=== PATIENT | male | born 1975 | race Caucasian/White ===

== ENCOUNTER 2016-12-17 14:36 | Emergency (ER) | payer MEDICARE, OTHER | END 2016-12-17 17:20 | disposition home or self-care (01) | LOC: ER 14:36 | DX: E86.0 Dehydration (principal); F31.9 Bipolar disorder, unspecified; F17.210 Nicotine dependence, cigarettes, uncomplicated; Z79.899 Other long term (current) drug therapy; Z88.0 Allergy status to penicillin; Z91.030 Bee allergy status | CPT/HCPCS: 36415; 96361; 96374 ==

== ENCOUNTER → 2017-01-07 | Day surgery (SDC) | payer MEDICARE, OTHER ==
[~2017-01-07] VITALS: Ht 152.4 cm; Wt 60.8 kg
== END | disposition home or self-care (01) ==
LOC: SDC 07:58
DX: N30.20 Other chronic cystitis without hematuria (principal); N32.89 Other specified disorders of bladder; N35.9 Urethral stricture, unspecified; I10 Essential (primary) hypertension; J45.909 Unspecified asthma, uncomplicated; M19.90 Unspecified osteoarthritis, unspecified site; F17.210 Nicotine dependence, cigarettes, uncomplicated; Z79.899 Other long term (current) drug therapy; Z88.0 Allergy status to penicillin
CPT/HCPCS: C1758; J1885; J2704; Q9967